=== PATIENT | male | born 1945 | race Two or more races ===

== ENCOUNTER 2024-04-08 09:46 | Day surgery (SDC) | payer MEDICARE ==
[2024-04-08 12:42] VITALS: RESP 16; TEMP 98.1
[2024-04-08 13:45] VITALS: BP 141/80; PULSE 84
--- NOTE | 2024-04-08 22:24 | US ---
EXAMINATION TYPE: US FNA thyroid first lesion DATE OF EXAM: 04/08/2024 2:13 PM REASON FOR EXAM: 79-year-old male E04.1 NONTOXIC SINGLE THYROID NODULE RADIOLOGIST: Dr. Martinez PROCEDURE: Initial scanning demonstrates the minimally hypoechoic to isoechoic 1.9 cm nodule at the l ower left lobe. On the current ultrasound settings, some images suggest that it is isoechoic which de creases suspicion. The nodule is targeted for FNA. The procedure, along with the risks and complications were discussed with the patient. Patient agreed to proceed with the procedure. A consent was signed and placed in patient's chart. Maximum sterile barrier technique was utilized. Timeout was performed by myself. The left side of the neck was sterilely prepped and draped in the usual fashion. 3 milliliters of 1% Lidocaine were utili zed to anesthetize the superficial and deep soft tissues. Following that, under ultrasound guidance, 5 passes were made into the left lower pole nodule with 5 cc syringe suction. After each pass, the sample was placed on a slide and then sent for pathology. Upon conclusion, hemostasis was achieved, and patient was discharged home in satisfactory condition. IMPRESSION: Successful FNA of the dominant solid nodule measuring 1.9 cm at the left lower pole. This appeared sl ightly hypoechoic (TR4) on the patient's outside ultrasound. It appears more isoechoic, possibly TR3 on the current scan which decreases suspicion. Pathology pending.
== END 2024-04-08 13:48 | disposition home or self-care (01) ==
LOC: RADPROMAIN 09:46
PROVIDERS: ATTEND Internal Medicine
DX: E04.1 Nontoxic single thyroid nodule (principal)
CPT/HCPCS: 10005; 88173; 88305

== ENCOUNTER 2024-05-31 12:13 | Day surgery (SDC) | payer MEDICARE ==
[2024-05-31 13:00] VITALS: TEMP 98
--- NOTE | 2024-05-31 13:58 | US ---
ULTRASOUND GUIDED FNA THYROID BIOPSY: CLINICAL HISTORY: Request for repeat biopsy 1.9 cm left lower pole thyroid nodule. FINDINGS: The procedure was explained to the patient. The risks, complications, benefits and alternatives were discussed and any questions were answered. Informed consent was obtained. Patient was placed supin e on the ultrasound table and prepped and draped in the usual sterile fashion. Utilizing a 25 gauge needle, five passes were made into the requested left thyroid nodule.. Patient was stable throughout the procedure. Pathology is pending. All elements of maximal barrier technique were utilized. IMPRESSION: 1. Successful ultrasound guided FNA thyroid biopsy.
[2024-05-31 14:01] VITALS: BP 137/79; PULSE 66; RESP 16
== END 2024-05-31 13:45 | disposition home or self-care (01) ==
LOC: RADPROMAIN 12:13
PROVIDERS: ATTEND Internal Medicine
DX: E04.1 Nontoxic single thyroid nodule (principal)
CPT/HCPCS: 10005